=== PATIENT | male | born 1960 | race Hispanic/Latino ===

== ENCOUNTER → 2018-10-19 | Outpatient (CLI) | payer BC, MEDICARE | END | disposition home or self-care (01) | LOC: RAH 16:39 | PROVIDERS: ATTEND Internal Medicine | DX: M47.894 Other spondylosis, thoracic region (principal); M25.78 Osteophyte, vertebrae; R07.9 Chest pain, unspecified; Z98.1 Arthrodesis status | CPT/HCPCS: 71046; 72070; 72100 ==

== ENCOUNTER → 2018-12-14 | Outpatient (CLI) | payer BC, MEDICARE ==
[~2018-12-14] MED LIST: IOHEXOL-350 50ML VIAL IV ONE
== END | disposition home or self-care (01) ==
LOC: RAH 13:01
PROVIDERS: ATTEND Internal Medicine
DX: J44.9 Chronic obstructive pulmonary disease, unspecified (principal); M47.815 Spondylosis without myelopathy or radiculopathy, thoracolumbar region; K76.0 Fatty (change of) liver, not elsewhere classified; F17.210 Nicotine dependence, cigarettes, uncomplicated
CPT/HCPCS: 71260; Q9967

== ENCOUNTER 2021-09-11 07:32 | Observation (INO) | payer BC, MEDICARE ==
[2021-09-05 14:38] LABS: BASOPHILS % (AUTO) 0.5 % (0.0-5.0); EOSINOPHILS % (AUTO) 3.7 % (0.0-8.0); HEMATOCRIT 44.7 % (42-54); LYMPHOCYTES % (AUTO) 39.4 % (21.0-51.0); MEAN CORPUSCULAR HEMOGLOBIN 29.1 pg (27.0-33.0); MEAN CORPUSCULAR HGB CONC 33.1 g/dL (32.0-36.0); PLATELET COUNT (AUTO) 148 K/uL (130-400); RED BLOOD CELL COUNT(AUTO) 5.08 MIL/uL (4.50-6.20)
[2021-09-05 14:48] LABS: CREATININE 1.2 mg/dL (0.5-1.5); POTASSIUM 3.8 mmol/L (3.5-5.1)
[2021-09-05 14:50] LABS: INR 0.95 (0.85-1.15); PROTHROMBIN TIME 10.4 SEC (9.6-11.6)
[2021-09-05 14:52] LABS: PARTIAL THROMBOPLASTIN TIME 27.1 SEC (26.3-35.5)
[2021-09-10 15:47] VITALS: BP 158/99
[2021-09-11] VITALS (26 sets, daily range): BP systolic 118–147; BP diastolic 69–95
[~2021-09-11] VITALS: Ht 167.6 cm; Wt 108.9 kg
[2021-09-11] MEDS: CEFAZOLIN SODIUM 1 GM VIAL IVP SCH ×3 (05:00→18:16)
[~2021-09-11 07:32] MED LIST changes: +AMLO-258 PO; +ASCO100031 PO; +DOXE3TAB4 PO; +GABA300C PO; +GLIP10TA9 PO; -IOHEXOL-350 50ML VIAL IV ONE; +LISI40TA9 PO; +MAGN400T40 PO; +MELO-108 PO; +METF-446 PO; +NIAC500T22 PO; +ROPIVICAINE 250MG+KETOROLAC 15MG+EPINEPHRINE 0.3+CLONIDINE 80 IV PRN; +SEMA1PEN3 SQ; +TRIA1CAP6 PO; +VITAMIN D3 PO
[2021-09-11] MEDS ORDERED: 0.9%NACL 1000ML 1,000 ML IV ONE (08:43)
[2021-09-11] MEDS ORDERED: TRANEXAMIC ACID 1000MG/10ML ONE (09:09)
[2021-09-11] MEDS ORDERED: ROPIVACAINE 0.5% 5MG/ML 30ML IJ ONE (10:54)
[2021-09-11] MEDS ORDERED: ROCURONIUM 10MG/1ML SYR 10 MG/ML ML ONE ×2 (10:57→11:46)
[2021-09-11] MEDS ORDERED: PROPOFOL 10 MG/ML 20ML VIAL IV ONE (10:57)
[2021-09-11] MEDS ORDERED: SUCCINYLCHOLINE CHLORIDE 20 MG/ML 10 ML VIAL ONE (10:57)
[2021-09-11] MEDS ORDERED: MIDAZOLAM HCL 1 MG/ML 2ML VIAL ONE (10:57)
[2021-09-11] MEDS ORDERED: LIDOCAINE PF 100MG/5ML (2%) SYRINGE 5ML ONE (10:57)
[2021-09-11] MEDS ORDERED: ONDANSETRON 4MG INJ IVP PRN (11:30)
[2021-09-11] MEDS: INSULIN HUMULIN R 100 UNIT/ML 3ML SQ SCH ×3 (11:30→21:00)
[2021-09-11] MEDS ORDERED: MORPHINE 4 MG SYG IVP PRN (11:30)
[2021-09-11] MEDS: ACETAMINOPHEN 500 MG TABLET PO SCH ×2 (11:30→19:30)
[2021-09-11] MEDS ORDERED: HYDROCODONE/ACETAMINOPHEN 5/325 MG TAB PO PRN (11:30)
[2021-09-11] MEDS ORDERED: EPHEDRINE SULFATE 50 MG/ML AMPULE ONE (12:36)
[2021-09-11] MEDS ORDERED: GLYCOPYRROLATE 1 MG/5 ML SYRINGE ONE (13:26)
[2021-09-11] MEDS ORDERED: NEOSTIGMINE 5MG/5ML SYR IV ONE (13:26)
[2021-09-11] MEDS ORDERED: ONDANSETRON 4MG INJ ONE (13:26)
[2021-09-11] MEDS: 0.9%NACL 1000ML 1,000 ML IV SCH ×2 (15:44→21:30)
[2021-09-11] MEDS: METFORMIN HCL 500 MG TABLET PO SCH (18:18)
[2021-09-11] MEDS: TRAMADOL HCL 50 MG TABLET PO SCH (18:20)
[2021-09-11] MEDS: ASPIRIN 81 MG EC TAB PO SCH ×2 (21:00→21:04)
[2021-09-11] MEDS ORDERED: CYCLOBENZAPRINE HCL 10 MG TABLET PO ONE (21:00)
[2021-09-11] MEDS ORDERED: ASPIRIN 81MG CHEW TAB PO ONE (21:00)
[2021-09-11] MEDS: DOXEPIN 3 MG PO SCH (21:00)
[2021-09-11] MEDS: FAMOTIDINE 20MG TAB PO SCH (21:03)
[2021-09-11] MEDS: GABAPENTIN 300 MG CAPSULE PO SCH (21:03)
[2021-09-11] MEDS: MAGNESIUM OXIDE 400 MG TABLET PO SCH (21:04)
[2021-09-11] MEDS: CELECOXIB 200 MG CAP PO SCH (21:04)
[2021-09-11] MEDS: NITROGLYCERIN 1GM OINT 1 INCH/1GM TD SCH (21:20)
[2021-09-12] MEDS: CEFAZOLIN SODIUM 1 GM VIAL IVP SCH (00:18)
[2021-09-12] MEDS: TRAMADOL HCL 50 MG TABLET PO SCH ×4 (00:26→18:00)
[2021-09-12 04:36] VITALS: BP 141/82
[2021-09-12] MEDS: ACETAMINOPHEN 500 MG TABLET PO SCH ×3 (05:22→20:08)
[2021-09-12] MEDS: INSULIN HUMULIN R 100 UNIT/ML 3ML SQ SCH ×4 (06:21→20:13)
[2021-09-12 07:00] VITALS: BP 142/79
[2021-09-12 07:04] LABS: HEMATOCRIT 37.9 % (42-54); MEAN CORPUSCULAR HEMOGLOBIN 29.1 pg (27.0-33.0); MEAN CORPUSCULAR HGB CONC 32.5 g/dL (32.0-36.0); MEAN CORPUSCULAR VOLUME 89.8 fL (79-99); RED BLOOD CELL COUNT(AUTO) 4.22 MIL/uL (4.50-6.20); RED CELL DISTRIBUTION WIDTH 13.5 % (11.0-15.5); WHITE BLOOD COUNT (AUTO) 8.8 K/uL (4.8-10.8)
[2021-09-12 07:13] LABS: CREATININE 1.1 mg/dL (0.5-1.5); POTASSIUM 3.8 mmol/L (3.5-5.1)
[2021-09-12] MEDS: 0.9%NACL 1000ML 1,000 ML IV SCH (07:30)
[2021-09-12] MEDS: GLIPIZIDE 5 MG TABLET PO SCH (08:40)
[2021-09-12] MEDS: FAMOTIDINE 20MG TAB PO SCH ×2 (08:40→20:08)
[2021-09-12] MEDS: ASPIRIN 81 MG EC TAB PO SCH ×2 (08:40→20:08)
[2021-09-12] MEDS: CELECOXIB 200 MG CAP PO SCH ×2 (08:40→20:08)
[2021-09-12] MEDS: POLYETHYLENE GLYCOL 3350 17 GM POWD.PACK PO SCH (08:40)
[2021-09-12] MEDS: METFORMIN HCL 500 MG TABLET PO SCH ×2 (08:40→16:41)
[2021-09-12] MEDS: LISINOPRIL 40 MG TABLET PO SCH (08:41)
[2021-09-12] MEDS: AMLODIPINE 5 MG TAB PO SCH (08:41)
[2021-09-12] MEDS: NITROGLYCERIN 1GM OINT 1 INCH/1GM TD SCH ×5 (08:42→20:21)
[2021-09-12] MEDS: OXYCODONE HCL 5 MG TAB PO PRN ×2 (08:54→15:29)
[2021-09-12] MEDS: NIACIN 500 MG SRTAB PO SCH (09:01)
[2021-09-12] MEDS: TRIAMTEREN/HCTZ 37.5/25 MG 1 TAB TAB PO SCH (09:04)
[2021-09-12 11:00] VITALS: BP 136/84
[2021-09-12] MEDS ORDERED: KETOROLAC 30MG VIAL (30MG/ML) ONE (12:03)
[2021-09-12] MEDS: KETOROLAC 30MG VIAL (30MG/ML) IV PRN ×2 (12:09→18:45)
[2021-09-12 16:00] VITALS: BP 152/97
[2021-09-12] MEDS: MAGNESIUM OXIDE 400 MG TABLET PO SCH (20:08)
[2021-09-12 20:09] VITALS: BP 137/90
[2021-09-12] MEDS: GABAPENTIN 300 MG CAPSULE PO SCH (20:10)
[2021-09-12] MEDS: LUBIPROSTONE 24 MCG CAP PO SCH (20:12)
[2021-09-12] MEDS: DOXEPIN 3 MG PO SCH (21:00)
[2021-09-12 23:51] VITALS: BP 145/92
[2021-09-13] MEDS: TRAMADOL HCL 50 MG TABLET PO SCH ×3 (00:29→11:19)
[2021-09-13] MEDS: ACETAMINOPHEN 500 MG TABLET PO SCH ×2 (02:47→11:28)
[2021-09-13 03:46] VITALS: BP 125/94
[2021-09-13] MEDS: INSULIN HUMULIN R 100 UNIT/ML 3ML SQ SCH ×3 (05:29→16:28)
[2021-09-13 07:00] VITALS: BP 147/93
[2021-09-13] MEDS: KETOROLAC 30MG VIAL (30MG/ML) IV PRN ×2 (07:55→15:39)
[2021-09-13] MEDS: METFORMIN HCL 500 MG TABLET PO SCH ×3 (08:00→17:00)
[2021-09-13] MEDS: TRIAMTEREN/HCTZ 37.5/25 MG 1 TAB TAB PO SCH (09:33)
[2021-09-13] MEDS: ASPIRIN 81 MG EC TAB PO SCH (09:33)
[2021-09-13] MEDS: LUBIPROSTONE 24 MCG CAP PO SCH (09:33)
[2021-09-13] MEDS: POLYETHYLENE GLYCOL 3350 17 GM POWD.PACK PO SCH (09:33)
[2021-09-13] MEDS: NIACIN 500 MG SRTAB PO SCH (09:33)
[2021-09-13] MEDS: LISINOPRIL 40 MG TABLET PO SCH (09:34)
[2021-09-13] MEDS: AMLODIPINE 5 MG TAB PO SCH (09:34)
[2021-09-13] MEDS: FAMOTIDINE 20MG TAB PO SCH (09:34)
[2021-09-13] MEDS: GLIPIZIDE 5 MG TABLET PO SCH (09:34)
[2021-09-13] MEDS: CELECOXIB 200 MG CAP PO SCH (09:34)
[2021-09-13] MEDS: OXYCODONE HCL 5 MG TAB PO PRN (09:49)
[2021-09-13 11:00] VITALS: BP 150/96
[2021-09-13 16:00] VITALS: BP 164/96
[2021-09-14] MEDS ORDERED: BISACODYL 10 MG SUPP.RECT RC PRN (11:30)
[2021-09-18] MEDS ORDERED: OZEMPIC 1 MG SQ SCH (09:00)
== END 2021-09-13 17:30 | disposition home or self-care (01) ==
LOC: DAH 07:32 → 4AH 07:33
PROVIDERS: ADMIT Orthopaedic Surgery; ATTEND Orthopaedic Surgery
DX: M19.111 Post-traumatic osteoarthritis, right shoulder (principal); Z20.822 Contact with and (suspected) exposure to COVID-19; M24.511 Contracture, right shoulder; R07.89 Other chest pain; I10 Essential (primary) hypertension; E11.9 Type 2 diabetes mellitus without complications; E78.5 Hyperlipidemia, unspecified; J45.909 Unspecified asthma, uncomplicated; Z87.828 Personal history of other (healed) physical injury and trauma; Z79.899 Other long term (current) drug therapy; Z88.8 Allergy status to other drugs, medicaments and biological substances
CPT/HCPCS: 23470; 36415 ×3; 73030 ×2; 80048 ×2; 82550; 82948 ×11; 83874; 84484 ×4; 85025; 85027; 85610; 85730; 87635; 87641; 93005; 96372; 96374; 96375 ×2; 96376 ×2; 97039 ×2; 97116 ×3; 97161; 97530 ×4; A4215 ×2; A4216; A4221; A4222; A4223 ×2; A4510; A4565; A4600; A4649 ×3; A4663; A4930; A6204; C1776; C9803; G0378 ×48; J0171; J0330; J0690 ×3; J0735; J1815 ×3; J1885 ×5; J2001; J2250; J2270 ×2; J2405; J2704; J2710; J2795 ×2; J3490 ×3; J7030 ×2

== ENCOUNTER → 2022-11-12 | Outpatient (CLI) | payer BC, MEDICARE ==
[~2022-11-12] MED LIST changes: -ROPIVICAINE 250MG+KETOROLAC 15MG+EPINEPHRINE 0.3+CLONIDINE 80 IV PRN; -TRIA1CAP6 PO; +TRIA1CAP87 PO
== END | disposition home or self-care (01) ==
LOC: RAH 12:20
PROVIDERS: ATTEND Internal Medicine
DX: M25.562 Pain in left knee (principal)
CPT/HCPCS: 73560

== ENCOUNTER → 2023-07-15 | Outpatient (CLI) | payer BC, MEDICARE | END | disposition home or self-care (01) | LOC: RAH 09:49 | DX: Z01.818 Encounter for other preprocedural examination (principal); J44.9 Chronic obstructive pulmonary disease, unspecified | CPT/HCPCS: 71046 ==

== ENCOUNTER 2023-07-30 06:54 | Day surgery (SDC) | payer BC, MEDICARE ==
[2023-07-24 11:53] LABS: BASOPHILS # (AUTO) 0.03 K/uL (0.00-0.20); BASOPHILS % (AUTO) 0.4 % (0.0-5.0); EOSINOPHILS # (AUTO) 0.16 K/uL (0.00-0.70); HEMATOCRIT 45.5 % (42-54); IMMATURE GRANULOCYTE ABSOLUTE 0.02 K/uL (0-1); LYMPHOCYTES # (AUTO) 2.3 K/uL (1.0-4.8); LYMPHOCYTES % (AUTO) 28.6 % (21.0-51.0); MEAN CORPUSCULAR HEMOGLOBIN 28.9 pg (27.0-33.0); MEAN CORPUSCULAR VOLUME 87.7 fL (79-99); MONOCYTES # (AUTO) 0.6 K/uL (0.1-1.0); MONOCYTES % (AUTO) 7.8 % (3.0-13.0); NEUTROPHILS # (AUTO) 4.8 K/uL (1.8-7.7); NEUTROPHILS % (AUTO) 60.9 % (40.0-77.0); PLATELET COUNT (AUTO) 174 K/uL (130-400); RED BLOOD CELL COUNT(AUTO) 5.19 MIL/uL (4.50-6.20); RED CELL DISTRIBUTION WIDTH 13.8 % (11.0-15.5); WHITE BLOOD COUNT (AUTO) 7.9 K/uL (4.8-10.8)
[2023-07-24 11:57] VITALS: BP 148/93; PULSE 75; RESP 20
[2023-07-24 12:07] LABS: INR < 0.93 (0.85-1.15); PROTHROMBIN TIME 10.5 SEC (9.6-11.6)
[2023-07-24 12:08] LABS: PARTIAL THROMBOPLASTIN TIME 27.9 SEC (26.3-35.5)
[2023-07-24 12:09] LABS: POTASSIUM 3.9 mmol/L (3.5-5.1)
[2023-07-30] VITALS (19 sets, daily range): BP systolic 118–143; BP diastolic 73–104; PULSE 64–94; RESP 10–20
[~2023-07-30] VITALS: Ht 167.6 cm; Wt 88.2 kg
[~2023-07-30 06:54] MED LIST changes: +AEC81 PO; -ASCO100031 PO; +DOXE10CA2 PO; -DOXE3TAB4 PO; -GABA300C PO; -MAGN400T40 PO; -NIAC500T22 PO; +SERT-440 PO; -VITAMIN D3 PO
[2023-07-30] MEDS ORDERED: 0.9%NACL 1000ML 1,000 ML IV ONE (07:31)
[2023-07-30] MEDS ORDERED: CEFAZOLIN SODIUM 2 GM VIAL ONE (07:31)
[2023-07-30] MEDS ORDERED: LIDOCAINE PF 100MG/5ML (2%) SYRINGE 5ML ONE (09:17)
[2023-07-30] MEDS ORDERED: SUCCINYLCHOLINE 200MG/10ML SYR ONE (09:17)
[2023-07-30] MEDS ORDERED: DEXAMETHASONE SOD PHOSPHATE 10MG/ML 1ML VIAL ONE (09:17)
[2023-07-30] MEDS ORDERED: PROPOFOL 10 MG/ML 20ML VIAL IV ONE (09:17)
[2023-07-30] MEDS ORDERED: MIDAZOLAM HCL 1 MG/ML 2ML VIAL ONE (09:17)
[2023-07-30] MEDS ORDERED: ONDANSETRON 4MG INJ ONE ×2 (09:18→10:58)
[2023-07-30] MEDS ORDERED: FENTANYL CITRATE PF 50 MCG/1 ML 5ML AMP IV ONE (09:18)
[2023-07-30] MEDS ORDERED: CEFAZOLIN SODIUM 2 GM VIAL IVPB ONE (10:00)
[2023-07-30] MEDS ORDERED: MEPERIDINE-PF 25 MG/ML SYG ONE ×2 (10:24→10:59)
[2023-07-30] MEDS ORDERED: KETOROLAC 30MG VIAL (30MG/ML) ONE (10:59)
[2023-07-30] MEDS ORDERED: CALDOLOR 800MG+NS 250ML 250 ML IV ONE (11:00)
== END 2023-07-30 12:44 | disposition home or self-care (01) ==
LOC: DAH 06:54
PROVIDERS: ATTEND Orthopaedic Surgery
DX: M25.562 Pain in left knee (principal); M94.262 Chondromalacia, left knee; M23.222 Derangement of posterior horn of medial meniscus due to old tear or injury, left knee; E11.9 Type 2 diabetes mellitus without complications; I10 Essential (primary) hypertension; M19.011 Primary osteoarthritis, right shoulder; J45.909 Unspecified asthma, uncomplicated; E66.9 Obesity, unspecified; M17.10 Unilateral primary osteoarthritis, unspecified knee; Z88.8 Allergy status to other drugs, medicaments and biological substances; Z79.01 Long term (current) use of anticoagulants; Z79.899 Other long term (current) drug therapy; Z87.891 Personal history of nicotine dependence; Z68.31 Body mass index [BMI] 31.0-31.9, adult; Z98.890 Other specified postprocedural states
CPT/HCPCS: 80048; 85025; 85610; 85730; 36415; 93005; 29881; 82948 ×2; A6260; A4663; A4606; J3010; J0330; J1100; J7030; J2001; J2250; J2704; J2405 ×2; J1885; J2175 ×2; J0690 ×2; A6223; A4649 ×2; A5120; A4215; A4223; A4222; A4221; A6450; J3490

== ENCOUNTER → 2023-09-23 | Outpatient (CLI) | payer BC, MEDICARE | END | disposition home or self-care (01) | LOC: RAH 09:19 | PROVIDERS: ATTEND Internal Medicine | DX: F17.201 Nicotine dependence, unspecified, in remission (principal) | CPT/HCPCS: 76775 ==